=== PATIENT | male | born 1960 | race Caucasian/White ===

== ENCOUNTER 2024-03-12 23:11 | Inpatient (IN) | payer OTHER ==
[~2024-03-12] VITALS: Ht 175.3 cm; Wt 86.5 kg
[~2024-03-12 23:11] MED LIST: Aspirin 81 MG Chew PO ONE; Heparin Sodium,Porcine 5,000 UNIT/0.5 ML SDV SC ONE; Nitroglycerin 0.4 MG SUBL SL ONE
[2024-03-12] MEDS ORDERED: Aspirin 81 MG Chew PO ONE (23:55)
[2024-03-12 23:59] LABS: Calcium, Ionized (POC) 1.09 mmol/L (1.10-1.46); Chloride (POC) 106 mmol/L (98-108); Creatinine (POC) 1.5 mg/dL (0.8-1.3); Glucose (ISTAT POC) 136 mg/dL (70-99); Hemoglobin (POC) 15.3 g/dL (13.5-17.5); Potassium (POC) 3.9 mmol/L (3.5-5.5); Sodium (POC) 141 mmol/L (135-148); Total CO2 (POC) 23 mmol/L (21-32)
[2024-03-13] VITALS (40 sets, daily range): BP systolic 120–189; BP diastolic 71–140
[2024-03-13] MEDS ORDERED: Heparin Sodium 1000 Units/ML 10ML MDV ONE (00:10)
[2024-03-13] MEDS ORDERED: Verapamil HCL 2.5 MG/ML 2ML Injection ONE (00:10)
[2024-03-13] MEDS ORDERED: NS 250 ML IV ONE (00:10)
[2024-03-13] MEDS ORDERED: NS 1,000 ML IV ONE ×2 (00:10→00:15)
[2024-03-13] MEDS ORDERED: Nitroglycerin 2 MG/20 ML BTL ONE (00:11)
[2024-03-13 00:15] LABS: BASOPHILS ABSOLUTE AUTO 0.02 K/mm3 (0.00-0.23); BASOPHILS PERCENT AUTO 0 % (0-2); EOSINOPHILS ABSOLUTE AUTO 0.06 K/mm3 (0.00-0.68); EOSINOPHILS PERCENT AUTO 1 % (0-6); Hematocrit 31.8 % (37.0-53.0); Hemoglobin 11.1 g/dL (13.5-17.5); IMMATURE GRAN ABSOLUTE AUTO 0.03 K/mm3 (0.00-0.10); IMMATURE GRAN PERCENT AUTO 0 % (0-1); LYMPHOCYTES ABSOLUTE AUTO 3.17 K/mm3 (0.84-5.20); LYMPHOCYTES PERCENT AUTO 45 % (21-46); MONOCYTES ABSOLUTE AUTO 0.42 K/mm3 (0.16-1.47); MONOCYTES PERCENT AUTO 6 % (4-13); Mean Corpuscular HGB 30.7 pg (26.0-34.0); Mean Corpuscular HGB Conc 34.9 g/dL (31.5-36.5); Mean Corpuscular Volume 88 fL (80-100); Mean Platelet Volume 10.7 fL (9.1-12.4); NEUTROPHILS ABSOLUTE AUTO 3.32 K/mm3 (1.96-9.15); NEUTROPHILS PERCENT AUTO 47 % (41-73); Platelet Count 130 K/mm3 (150-400); RDW Coefficient Variation 12.6 % (11.7-14.2); RDW Standard Deviation 40.2 fL (35.1-46.3); Red Blood Cell Count 3.62 M/mm3 (4.30-5.90); White Blood Cell Count 7.02 K/mm3 (4.00-11.30)
[2024-03-13] MEDS ORDERED: FentaNYL Citrate 50 MCG/ML 2 ML Injection ONE ×3 (00:15→00:35)
[2024-03-13] MEDS ORDERED: Phenylephrine HCl 100 MCG/ML-NS 10MLSYR (1MG/10ML) ONE (00:15)
[2024-03-13] MEDS ORDERED: Midazolam HCl 1MG / ML 2ML Vial ONE (00:15)
[2024-03-13] MEDS ORDERED: FentaNYL Citrate 50 MCG/ML 2 ML Injection IV ONE (00:15)
[2024-03-13] MEDS ORDERED: Atropine Sulfate 0.1 MG/ML 10ML SYR ONE (00:15)
[2024-03-13 00:17] LABS: Bilirubin, Total 0.7 mg/dL (0.1-1.0); Bun/Creatinine Ratio 15.3 (12.0-20.0); Calcium, Blood 9.6 mg/dL (8.5-10.1); Creatinine, Blood 1.37 mg/dL (0.60-1.20); Potassium, Blood 3.7 mmol/L (3.5-5.5)
[2024-03-13 00:32] LABS: International Normalized Ratio 1.17; Prothrombin Time Results 12.4 Sec (9.7-11.5)
[2024-03-13] MEDS ORDERED: Tirofiban HCL Monohydrate 3.75 MG/15 ML Vial ONE (00:32)
[2024-03-13] MEDS ORDERED: Amiodarone HCl 50 MG / ML 3 ML Amp ONE ×2 (00:39→00:40)
[2024-03-13] MEDS ORDERED: Ondansetron HCl 2 MG / ML 2ML Vial ONE (00:40)
[2024-03-13] MEDS ORDERED: Ticagrelor 90 MG TABLET ONE (00:55)
[2024-03-13] MEDS ORDERED: Ticagrelor 90 MG TABLET PO ONE (01:15)
[2024-03-13] MEDS ORDERED: GENVOYA TABLET1 EAC1 PO (01:21)
[2024-03-13] MEDS ORDERED: FLU VACC TS2024-25(6MOS UP)/PF 45 MCG/0.5 ML SYRINGE IM ONE (01:30)
[2024-03-13] MEDS ORDERED: Ondansetron HCl 2 MG / ML 2ML Vial IV PRN (01:30)
--- NOTE | 2024-03-13 01:57 | NUR ---
ARRIVAL TO ICU: PT ARRIVED TO ICU ROOM 05 AT 0113 VIA BED FROM [facility]. PT ALERT AND ORIENTED X4, ANSWERS QUESTIONS AND FOLLOWS DIRECTION. PT STATES HE IS TIRED AND IS REQUESTING TO SLEEP. PT PLACED ON 2L NC FOR SLEEP, SATS LOW 90'S. LUNGS CLEAR. TR BAND TO RIGHT RADIAL, NO SIGNS OF OOZING OR HEMATOMA, SPO2 PLETH HAS GOOD WAVEFORM, ARMBOARD IN PLACE. PULSES PALPABLE, PT DENIES TINGLING OR NUMBNESS IN HAND. SLOT EDITOR IN PLACE, SR WITH FREQUENT PVC'S. HR 60'S.SBP 120'S. DENIES CHEST PAIN/PRESSURE OR SOB. PIVS TO RAC, RH BOTH PATENT AND SALINE LOCKED. PT HAS NOT YET VOIDED OR HAD A BM. SIGNIFICANT OTHER AT BEDSIDE. BED LOW AND LOCKED, CALL LIGHT IN REACH.
[2024-03-13 03:31] LABS: BASOPHILS ABSOLUTE AUTO 0.02 K/mm3 (0.00-0.23); BASOPHILS PERCENT AUTO 0 % (0-2); EOSINOPHILS ABSOLUTE AUTO 0.02 K/mm3 (0.00-0.68); EOSINOPHILS PERCENT AUTO 0 % (0-6); Hematocrit 44.3 % (37.0-53.0); Hemoglobin 15.7 g/dL (13.5-17.5); IMMATURE GRAN ABSOLUTE AUTO 0.05 K/mm3 (0.00-0.10); IMMATURE GRAN PERCENT AUTO 1 % (0-1); LYMPHOCYTES ABSOLUTE AUTO 0.65 K/mm3 (0.84-5.20); LYMPHOCYTES PERCENT AUTO 6 % (21-46); MONOCYTES ABSOLUTE AUTO 0.46 K/mm3 (0.16-1.47); MONOCYTES PERCENT AUTO 5 % (4-13); Mean Corpuscular HGB 30.8 pg (26.0-34.0); Mean Corpuscular HGB Conc 35.4 g/dL (31.5-36.5); Mean Corpuscular Volume 87 fL (80-100); Mean Platelet Volume 10.7 fL (9.1-12.4); NEUTROPHILS ABSOLUTE AUTO 9.08 K/mm3 (1.96-9.15); NEUTROPHILS PERCENT AUTO 88 % (41-73); Platelet Count 153 K/mm3 (150-400); RDW Coefficient Variation 12.5 % (11.7-14.2); RDW Standard Deviation 39.8 fL (35.1-46.3); White Blood Cell Count 10.28 K/mm3 (4.00-11.30)
[2024-03-13 04:00] LABS: Alanine Aminotransfer (ALT/SGP 69 U/L (12-78); Albumin, Blood 4.2 g/dL (3.4-5.0); Alk Phos 64 U/L (50-136); Anion Gap 10 mmol/L (3-11); Aspartate Aminotrans (AST/SGOT 353 U/L (12-37); Bilirubin, Total 0.8 mg/dL (0.1-1.0); Blood Urea Nitrogen 22 mg/dL (8-24); Bun/Creatinine Ratio 17.7 (12.0-20.0); CHOL/HDL RATIO 4.9; CO2, Blood 27 mmol/L (21-32); Calcium, Blood 9.4 mg/dL (8.5-10.1); Chloride, Blood 108 mmol/L (98-108); Cholesterol 206 mg/dL (50-200); Creatinine, Blood 1.24 mg/dL (0.60-1.20); Glomerular Filtration Rate 66 (60-); Glucose, Blood 120 mg/dL (70-99); HDL Cholesterol 42 mg/dL (>39); LDL/HDL RATIO 3.3; Low Density Lipoprotein Chol 140 mg/dL (0-110); Potassium, Blood 3.7 mmol/L (3.5-5.5); Sodium, Blood 141 mmol/L (136-145); Total Protein, Blood 8.2 g/dL (6.4-8.2); Triglycerides 120 mg/dL (30-160); Very Low Density Lipoprot Chol 24 mg/dL (6-32)
[2024-03-13 04:08] LABS: Influenza A, PCR NEGATIVE (NEGATIVE); Influenza B, PCR NEGATIVE (NEGATIVE); Resp Syncytial Virus, PCR NEGATIVE (NEGATIVE); SARS-Cov-2 (COVID-19) PCR, MMC NEGATIVE (NEGATIVE)
--- NOTE | 2024-03-13 05:24 | NUR ---
SHIFT SUMMARY: TR BAND FULLY DEFLATED AT 0500. TR BAND STILL IN PLACE, WILL REMOVE AT 0600 IF NO BLEEDING OR OOZING. ARMBOARD IN PLACE, PT HAS NO C/O CHEST PAIN/PRESSURE OR SOB THIS AM. SALINE LOCKED. A&O X4. SBP 150-170, DR. STRONG AWARE, OPTED TO MONITOR UNTIL AM MEDS, WILL CALL BACK IF SBP >190. USING URINAL IND. MOVING IN BED IND. BED LOW, CALL LIGHT IN REACH.
--- NOTE | 2024-03-13 06:19 | NUR ---
UPDATE: TR BAND OFF AT 0600. OBSITE IN PLACE, WITH ARMBOARD. NO SIGNS OF OOZING OR HEMATOMA NOTED, ADDISON RN VERIFIED SITE WITH THIS RN. PT REMINDED NOT TO USE RIGHT WRIST.
--- NOTE | 2024-03-13 08:15 | NUR ---
ASSUMED CARE BEDSIDE REPORT FROM DARRON ESPINAL AT 0700. PT RESTING IN BED. A&O X 4. FOLLOWS COMMANDS. REPORTS CHEST DISCOMFORT, /. NO ECTOPY OR EKG CHANGES. LUNGS CLEAR. PT P/W/D. R RADIAL ACCESS SITE, NO BRUISING, SWELLING NOTED. ARMBOARD IN PLACE. PT INDEPENDENT IN ROOM. SLEEPS WHEN UNDISTURBED. WILL CONTINUE PLAN OF CARE.
[2024-03-13] MEDS ORDERED: Aspirin 81 MG Chew PO SCH (09:00)
[2024-03-13] MEDS ORDERED: Ticagrelor 90 MG TABLET PO SCH (09:00)
[2024-03-13] MEDS ORDERED: Lisinopril 5 MG Tab PO SCH (09:00)
[2024-03-13] MEDS ORDERED: Metoprolol Tartrate 25 MG Tab PO SCH (09:00)
[2024-03-13] MEDS ORDERED: Lisinopril 5 MG Tab PO ONE (11:25)
[2024-03-13] MEDS ORDERED: Famotidine 20 MG Tab PO SCH (15:05)
--- NOTE | 2024-03-13 17:14 | NUR ---
SHIFT SUMMARY NO ACUTE CHANGES THIS SHIFT. RESTING IN BED, SLEEPS WHEN UNDISTURBED. REPORTS HEARTBURN, IMPROVED c PEPCID. SR, RATE 60'S. HTN NOTED, INCREASED LISINOPRIL DOSE, DR WILLOUGHBY AND DR ALCOCER AWARE. LUNGS CLEAR. A&OX 4. R RADIAL SITE WNL. WILL CONTINUE PLAN OF CARE UNTIL REPORT TO ONCOMING NURSE.
[2024-03-13] MEDS ORDERED: Atorvastatin 40 MG Tab PO SCH (21:00)
[2024-03-14] VITALS: BP 123/86
[2024-03-14 01:57] VITALS: BP 138/96
--- NOTE | 2024-03-14 01:59 | NUR ---
TRANSFER OF CARE GAVE BED SIDE REPORT TO RICK ESPINAL OF PCU. TRANSFERED TO PCU 18.
--- NOTE | 2024-03-14 02:50 | NUR ---
ASSUMED CARE WITH REPORT FROM RELATIONS DIRECTORRICK. PT AOX4, ABLE TO MAKE NEEDS KNOWN AND USES CALL LIGHT APPROPRIATELY. PT RECEPTIVE TO EDUCATION. ARM BOARD REMOVED FROM RT ARM, ANGIO PUNCTURE SITE WNL, NO S/S ACTIVE BLEEDING/HEMATOMA OR BRUISING. PT EDUCATED ON PRECAUTIONS WITH WEIGHT AND MOVEMENT FOR RT ARM D/T ANGIO SITE. LUNG CLEAR IN ALL DOYLE. HEART RATE AND RHYTHM WNL, NO ABNORMAL LUNG OR CARDIAC SOUNDS. NO EDEMA NOTED. BOWEL TONES ACTIVE IN ALL DOYLE. PT REPORTS NO PROBLEMS URINATING OR HAVING BM AT THIS TIME. NO REPORTS OF CP/SOB. PT CURRENTLY LYING COMFORTABLY IN BED WATCHING TV. TELEMETRY AND PULSE OXIMETRY ON. BED IN LOW POSITION, BRAKES ON, UPPER SIDE RAILS UP. BEDSIDE TABLE AND CALL LIGHT IN REACH.
--- NOTE | 2024-03-14 03:14 | NUR ---
TRANSFER TO PCU NOTE PT TRANSFERRED TO PCU 18 FROM ICU 5 VIA WC. RECEIVED REPORT FROM MUSEUM ASSISTANT MAKENZIE GLORIA AT BEDSIDE. PT A/Ox4 AND AND TO MAKE HIS NEEDS KNOWN. DENIES CP, PRESSURE OR DIZZINES. RIGHT RADIAL ACCESS SITE FROM ANGIO WNL. REPORT GIVEN TO PRIMARY RN BEATRIZ SANCHEZ. VSS, FRANCESCA UPON TRANSFER TO PCU.
[2024-03-14 04:21] LABS: Hematocrit 44.7 % (37.0-53.0); Hemoglobin 15.4 g/dL (13.5-17.5); Mean Corpuscular HGB 30.1 pg (26.0-34.0); Mean Corpuscular HGB Conc 34.5 g/dL (31.5-36.5); Mean Corpuscular Volume 88 fL (80-100); Mean Platelet Volume 11.1 fL (9.1-12.4); Platelet Count 182 K/mm3 (150-400); RDW Coefficient Variation 13.2 % (11.7-14.2); RDW Standard Deviation 42.2 fL (35.1-46.3); Red Blood Cell Count 5.11 M/mm3 (4.30-5.90); White Blood Cell Count 14.29 K/mm3 (4.00-11.30)
[2024-03-14 04:33] VITALS: BP 126/92
[2024-03-14 04:40] LABS: Bun/Creatinine Ratio 24.4 (12.0-20.0); Calcium, Blood 9.1 mg/dL (8.5-10.1); Creatinine, Blood 0.94 mg/dL (0.60-1.20); Magnesium, Blood 1.9 mg/dL (1.6-2.4); Potassium, Blood 3.8 mmol/L (3.5-5.5)
--- NOTE | 2024-03-14 06:21 | NUR ---
PT STABLE SINCE TRANSFER, REMAINS AOX4. PT HAS NOT BEEN OOB YET BUT WAS SBA/1 ASSIST PRIOR TO TRANSFER. RT ANGIO SITE REMAINS CLOSED WITH TEGADERM DRESSING IN PLACE. NO S/S HEMATOMA/BRUISING/ACTIVE BLEEDING. PT WAS EDUCATED ON PRECAUTIONS/RESTRICTIONS WITH RT ARM USE D/T ANGIO SITE. PT VERBALIZED UNDERSTANDING OF INSTRUCTION. PT SLEEPING SINCE TRANSFER W/O PROBLEM. VITAL SIGNS WNL. NO C/O CP OR SOB.
[2024-03-14 07:18] VITALS: BP 144/90
[2024-03-14] MEDS ORDERED: Lisinopril 10 MG Tab PO SCH (09:00)
[2024-03-14] MEDS ORDERED: GENVOYA PO SCH (09:00)
[2024-03-14] MEDS ORDERED: ASPI81CH PO (09:37)
[2024-03-14] MEDS ORDERED: Prinivil10 MG PO (09:38)
[2024-03-14] MEDS ORDERED: FAMO20 PO (09:38)
[2024-03-14] MEDS ORDERED: ATOR40TA PO (09:38)
[2024-03-14] MEDS ORDERED: METO25 PO (09:38)
[2024-03-14] MEDS ORDERED: TICA90TA PO (09:39)
--- NOTE | 2024-03-14 10:12 | NUR ---
Pt sitting up in chair, girlfriend at his side. Reviewed discharge instructions with both of them, medication list including indications for each med. She is going home to get his clothes and shoes and then will return to take him home. States they can get his new Rx today so that he can take them this evening. They are currently living in [place] but split their time in [place].
[2024-03-15 10:54] LABS: % CD4 25 % (32-64); ABSOLUTE CD4 186 cells/uL (430-1800)
[2024-03-15 12:47] LABS: HIV SEROLOGIC INTERPRETATION Pos HIV-1 Ab; HIV-1 ANTIBODY Positive (Negative); HIV-2 ANTIBODY Negative (Negative)
[2024-03-15 12:48] LABS: HIV 1,2 COMBO ANTIGEN/ANTIBODY Reactive (Negative)
[2024-03-16 06:15] LABS: HIV-1 QNT BY NAAT (COPIES/ML) 104 cpy/mL; HIV-1 QNT BY NAAT INTERP Detected (Not Detected); HIV-1 QNT NAAT (LOG COPIES/ML) 2.02
== END 2024-03-14 12:08 | disposition home or self-care (01) | DRG 322 ==
LOC: ER 23:11 → ICUE 23:56 → PCU 03-14 01:49
PROVIDERS: Emergency Medicine; Internal Medicine; Internal Medicine Interventional Cardiology; Physician Assistant; ADMIT Student in an Organized Health Care Education/Training Program
PROC: 027035Z Dilation of Coronary Artery, One Artery with Two Drug-eluting Intraluminal Devices, Percutaneous Approach (ICD-10-PCS; principal; 2024-03-13)
PROC: B2111ZZ Fluoroscopy of Multiple Coronary Arteries using Low Osmolar Contrast (ICD-10-PCS; 2024-03-13)
PROC: 4A023N7 Measurement of Cardiac Sampling and Pressure, Left Heart, Percutaneous Approach (ICD-10-PCS; 2024-03-13)
DX: I21.09 ST elevation (STEMI) myocardial infarction involving other coronary artery of anterior wall (principal); I27.20 Pulmonary hypertension, unspecified; Z21 Asymptomatic human immunodeficiency virus [HIV] infection status; N18.31 Chronic kidney disease, stage 3a; I12.9 Hypertensive chronic kidney disease with stage 1 through stage 4 chronic kidney disease, or unspecified chronic kidney disease; Z88.2 Allergy status to sulfonamides; Z88.8 Allergy status to other drugs, medicaments and biological substances; Z98.890 Other specified postprocedural states; Z79.899 Other long term (current) drug therapy; Z79.82 Long term (current) use of aspirin
CPT/HCPCS: 0241U; 36415; 71045; 76937; 80047; 80048; 80053; 80061; 83036; 83690; 83735; 83880; 84484; 85014; 85025; 85027; 85347; 85610; 85730; 86361; 86701; 86702; 87389; 93005; 93010; 93306; 93458; 94762; 96374-59; 99152; 99153; 99285-25; A9270; C1725; C1769; C1874; C1887; C1894; C9600; C9606; J0282; J0461; J1644; J2250; J2371; J2405; J3010; J3246; J7030; J7050; Q9967